=== PATIENT | male | born 1965 | race Caucasian/White ===

== ENCOUNTER 2020-03-03 16:33 | Outpatient (CLI) | payer BC, SELFPAY ==
--- NOTE | ~2020-03-03 | XR_ITS ---
EXAMINATION: XR elbow RT min 3V DATE: 03/03/2020 17:04 INDICATION: Olecranon bursitis. TECHNIQUE: 4 views of right elbow were obtained. COMPARISON: None. FINDINGS: Bone alignment is normal. No fracture. Joint spaces are well maintained. There is no elbow joint effusion. There is soft tissue swelling overlying the olecranon. IMPRESSION: 1. Soft tissue swelling overlying the olecranon, consistent with bursitis. Reviewed, dictated and finalized at location A. [facility] ROOFER
== END 2020-03-03 16:34 | disposition home or self-care (01) ==
PROVIDERS: PCP Family Medicine; Visit Provider Nurse Practitioner Family
DX: M70.21 Olecranon bursitis, right elbow (principal)
CPT/HCPCS: 73080